=== PATIENT | female | born 1945 ===

== ENCOUNTER 2016-07-18 17:34 | Inpatient (IN) | payer MEDICARE ==
[~2016-07-18] VITALS: Ht 162.6 cm; Wt 80.8 kg
[2016-07-18] VITALS (119 sets, daily range): BP systolic 123–143; BP diastolic 90–110; PULSE 95–116; TEMP 98–98.7; O2SAT 94–100
[~2016-07-18 17:34] MED LIST: AZULFIDINE500 MG/TAB PO; FERROUS SU325 MG/TAB PO; FLAGYL500 MG PO; NAPROXEN 3375 MG/TAB PO; PREDNISONE20 MG PO; TYLENOL W/COD1 UDTAB PO
[2016-07-18] MEDS ORDERED: NAPROXEN 3375 MG/TAB PO (18:44)
[2016-07-18] MEDS ORDERED: FLAGYL500 MG PO (18:44)
[2016-07-18] MEDS ORDERED: TYLENOL #21 TAB PO (18:45)
[2016-07-18 20:53] LABS: HEMATOCRIT 24.5 % (37.0-47.0); HEMOGLOBIN 7.2 g/dl (12.5-16.0)
[2016-07-18 21:05] LABS: TROPONIN-I 0.021 ng/mL (0.000-0.034)
[2016-07-19] VITALS (769 sets, daily range): BP systolic 119–150; BP diastolic 62–95; PULSE 64–94; TEMP 97.5–98.7; O2SAT 88–100
[2016-07-19 06:34] LABS: TROPONIN-I 0.021 ng/mL (0.000-0.034)
[2016-07-19 08:57] LABS: BASO # 0.1 (0.0-0.2); BASO % 1.4 % (0.0-2.0); EOS # 0.3 (0.0-0.7); EOS % 5.6 % (0-4.0); GRAN # 2.5 (1.4-6.5); GRAN % 49.3 % (42.2-75.2); LYMPH # 1.4 (1.2-3.4); LYMPH % 26.6 % (20.0-51.0); MEAN CELL VOLUME 75 fl (80.0-100.0); MEAN CORPUSCULAR HGB CONC 31 g/dl (33.0-37.0); MEAN PLATELET VOLUME 10.8 fl (7.4-10.4); MONO # 0.9 (0.1-0.6); MONO % 16.9 % (1.7-9.3); PLATELET COUNT 247 K/mm3 (130-400); RED BLOOD COUNT 4.15 M/mm3 (4.10-5.30); REDCELL DISTRIBUTION WIDTH-CV 17.1 % (11.5-14.5); WHITE BLOOD COUNT 5.2 K/mm3 (4.8-10.8)
[2016-07-19 09:00] LABS: HEMATOCRIT 31.2 % (37.0-47.0); HEMOGLOBIN 9.6 g/dl (12.5-16.0); MEAN CORPUSCULAR HEMOGLOBIN 23 pg (27.0-31.0)
[2016-07-19 22:08] LABS: PH 7 (5-8); SQUAMOUS EPITHELIAL 0-2 /hpf; URINE APPEARANCE Clear; URINE BACTERIA None Seen /hpf; URINE BILIRUBIN Negative (NEGATIVE); URINE BLOOD Negative (NEGATIVE); URINE COLOR Yellow; URINE GLUCOSE 1+ (NEGATIVE); URINE KETONE Negative (NEGATIVE); URINE RBC None Seen /hpf; URINE UROBILINOGEN Negative (NEGATIVE); URINE WBC 0-2 /hpf
[2016-07-20 01:51] VITALS: BP 133/96; PULSE 63; TEMP 97.8
[2016-07-20 05:48] VITALS: BP 145/93; PULSE 64; TEMP 98.5
[2016-07-20 09:59] VITALS: BP 139/91; PULSE 72; TEMP 97.4
[2016-07-20 13:50] LABS: MEAN CELL VOLUME 74 fl (80.0-100.0); MEAN CORPUSCULAR HGB CONC 31 g/dl (33.0-37.0); PLATELET COUNT 267 K/mm3 (130-400); RED BLOOD COUNT 4.07 M/mm3 (4.10-5.30); REDCELL DISTRIBUTION WIDTH-CV 17.2 % (11.5-14.5); RETIC % 2.1 % (0.5-3.52); WHITE BLOOD COUNT 19.2 K/mm3 (4.8-10.8)
[2016-07-20 13:53] LABS: HEMATOCRIT 29.9 % (37.0-47.0); HEMOGLOBIN 9.3 g/dl (12.5-16.0); MEAN CORPUSCULAR HEMOGLOBIN 23 pg (27.0-31.0)
[2016-07-20 13:54] LABS: ADD PATHOLOGY DIFF REVIEW NO
[2016-07-20 14:04] VITALS: BP 1024/10; BP 124/71; PULSE 88; TEMP 97.9
[2016-07-20 14:09] LABS: BAND 13 % (0-10); NEUTROPHILS 80 % (42.0-75.2); PLATELET ESTIMATE NORMAL (NORMAL); TARGET CELLS 1+; TOTAL CELLS COUNTED 100
[2016-07-20 14:15] LABS: ADJUSTED CALCIUM 9.7 mg/dL (8.4-10.2); ALBUMIN 3.3 gm/dL (3.5-5.0); BILIRUBIN,TOTAL 1.5 mg/dL (0.0-1.0); CALCIUM 9.1 mg/dL (8.4-10.2); CREATININE, serum 0.93 mg/dL (0.52-1.25); POTASSIUM 3.7 mmol/L (3.4-5.0); TOTAL PROTEIN 8.4 gm/dL (6.4-8.2)
[2016-07-20 14:38] LABS: MAGNESIUM 1.8 mg/dL (1.6-2.3)
[2016-07-20 17:44] VITALS: BP 131/92; PULSE 78; TEMP 98.6
[2016-07-20 21:44] VITALS: BP 134/79; PULSE 68; TEMP 98.2
[2016-07-21 01:51] VITALS: BP 124/84; PULSE 68; TEMP 98.1
[2016-07-21 05:24] VITALS: BP 144/84; PULSE 52; TEMP 98.1
[2016-07-21 09:24] VITALS: BP 133/80; PULSE 52; TEMP 98
[2016-07-21 12:37] LABS: ADD PATHOLOGY DIFF REVIEW NO; HEMATOCRIT 30.3 % (37.0-47.0); HEMOGLOBIN 9.4 g/dl (12.5-16.0); MEAN CELL VOLUME 75 fl (80.0-100.0); MEAN CORPUSCULAR HEMOGLOBIN 23 pg (27.0-31.0); MEAN CORPUSCULAR HGB CONC 31 g/dl (33.0-37.0); MEAN PLATELET VOLUME 11.4 fl (7.4-10.4); PLATELET COUNT 261 K/mm3 (130-400); RED BLOOD COUNT 4.06 M/mm3 (4.10-5.30); WHITE BLOOD COUNT 13.9 K/mm3 (4.8-10.8)
[2016-07-21 12:51] LABS: BAND 3 % (0-10); METAMYELOCYTE 1 % (0-0); NEUTROPHILS 90 % (42.0-75.2); PLATELET ESTIMATE NORMAL (NORMAL); TOTAL CELLS COUNTED 100
[2016-07-21 12:52] LABS: HYPOCHROMIA 1+
[2016-07-21 13:44] VITALS: BP 128/77; PULSE 105; TEMP 97.5
[2016-07-21 17:48] VITALS: BP 148/88; PULSE 68; TEMP 98.1
[2016-07-21 21:45] VITALS: BP 143/93; PULSE 55; TEMP 97.8
[2016-07-22 02:06] VITALS: BP 134/94; PULSE 71; TEMP 97.7
[2016-07-22 05:00] VITALS: BP 137/75; PULSE 53; TEMP 98.1
[2016-07-22 10:41] VITALS: BP 147/91; PULSE 79; TEMP 97.7
[2016-07-22] MEDS ORDERED: AZULFIDINE500 MG/TAB PO (11:59)
[2016-07-22] MEDS ORDERED: LOPRESSOR 550 MG/TAB PO (12:00)
[2016-07-22] MEDS ORDERED: FERROUS SU325 MG/TAB PO (12:00)
[2016-07-22] MEDS ORDERED: ASPIRIN 81M81 MG/TA2 PO (12:03)
[2016-07-22] MEDS ORDERED: PREDNISONE10 MG PO (12:03)
== END 2016-07-22 15:07 | disposition home or self-care (01) | DRG 387 ==
LOC: MEDICAL 17:34 → IMCU 18:51 → SURG 07-19 14:45
PROVIDERS: Internal Medicine; Nurse Practitioner Family
DX: K51.90 Ulcerative colitis, unspecified, without complications (principal); D50.0 Iron deficiency anemia secondary to blood loss (chronic); I10 Essential (primary) hypertension; R94.31 Abnormal electrocardiogram [ECG] [EKG]; I48.0 Paroxysmal atrial fibrillation
CPT/HCPCS: 99223-AI; 99232-AI; 99239; J1650; J1940; J2916; J2930; J7030; J7050; P9016; Q9967

== ENCOUNTER 2016-10-07 07:03 | Day surgery (SDC) | payer MEDICARE ==
[~2016-10-07 07:03] MED LIST changes: +ASPIRIN 81M81 MG/TA2 PO; +LOPRESSOR 550 MG/TAB PO; +PREDNISONE10 MG PO; +TYLENOL #21 TAB PO
== END 2016-10-07 08:00 | disposition home or self-care (01) ==
LOC: SDCO 07:03
DX: K51.818 Other ulcerative colitis with other complication (principal); Z53.09 Procedure and treatment not carried out because of other contraindication
CPT/HCPCS: OP